=== PATIENT | male | born 1965 | race Caucasian/White ===

== ENCOUNTER 2017-10-13 06:52 | Emergency (ER) | payer BC ==
[~2017-10-13] VITALS: Ht 188 cm; Wt 100.0 kg
[~2017-10-13 06:52] MED LIST: CLIN300C3 PO; HYDR-569 PO; IBUP-1984 PO
[2017-10-13] MEDS ORDERED: MORPHINE 2MG in 2ml NS syringe IV PRN (07:10)
[2017-10-13] MEDS ORDERED: proCHLORperazine 10 MG/2 ml inj IV PRN (07:10)
[2017-10-13] MEDS ORDERED: clindamycin-Cleocin 900mg/D5W 50 ML IV ONE (07:10)
[2017-10-13] MEDS ORDERED: normal saline 1000ML IV soln IVB ONE (07:45)
[2017-10-13 07:48] LABS: BASOPHILS # (AUTO) 0.1 X10'3 (0-0.2); BASOPHILS % (AUTO) 0.8 % (0-1); EOSINOPHILS # (AUTO) 0.3 X10'3 (0-0.9); EOSINOPHILS % (AUTO) 4.1 % (0-6); HEMATOCRIT 45.2 % (42.0-52.0); HEMOGLOBIN 15.5 g/dl (14.0-17.9); LYMPHOCYTES # (AUTO) 1.8 X10'3 (1.1-4.8); LYMPHOCYTES % (AUTO) 21.1 % (21-51); MEAN CORPUSCULAR HEMOGLOBIN 30.5 PG (27.0-31.0); MEAN CORPUSCULAR HGB CONC 34.2 % (33.0-36.5); MEAN PLATELET VOLUME 7.7 FL (7.4-10.4); MONOCYTES # (AUTO) 0.9 X10'3 (0-0.9); MONOCYTES % (AUTO) 10.6 % (2-12); NEUTROPHILS # (AUTO) 5.5 X10'3 (1.8-7.7); NEUTROPHILS % (AUTO) 63.4 % (42-75); PLATELET COUNT 272 X10'3 (140-440); RED BLOOD COUNT 5.08 X10'6 (4.70-6.10); RED CELL DISTRIBUTION WIDTH 14.1 % (11.5-14.5); WHITE BLOOD COUNT 8.6 X10'3 (4.5-11.0)
[2017-10-13 07:52] LABS: ALANINE AMINOTRANSFERASE 54 U/L (12-78); ALBUMIN 3.2 G/DL (3.4-5.0); ALBUMIN/GLOBULIN RATIO 0.9 (1.1-1.5); ALKALINE PHOSPHATASE 94 IU/L (46-116); ANION GAP 7 (8-16); ASPARTATE AMINO TRANSFERASE 28 U/L (10-37); BILIRUBIN,TOTAL 0.3 MG/DL (0.1-1.0); BLOOD UREA NITROGEN 13 MG/DL (7-18); BUN/CREATININE RATIO 14.8 (5.4-32.0); CALCIUM 8.9 MG/DL (8.5-10.1); CHLORIDE 101 MMOL/L (99-107); CREATININE 0.88 MG/DL (0.60-1.10); GLUCOSE 140 MG/DL (70-104); POTASSIUM 3.6 MMOL/L (3.5-5.1); SODIUM 137 MMOL/L (135-145); TOTAL CARBON DIOXIDE 29.5 MMOL/L (24-32); TOTAL PROTEIN 6.9 G/DL (6.4-8.2); eGFR > 90 ML/MIN
[2017-10-13] MEDS ORDERED: iohexol 300mg/ml 100ml inj. ONE (07:52)
[2017-10-13] MEDS ORDERED: AZIT250T2 PO (09:59)
[2017-10-13 10:17] VITALS: BP 135/65
== END 2017-10-13 10:19 | disposition home or self-care (01) ==
LOC: ER 06:53
DX: K04.7 Periapical abscess without sinus (principal); J32.9 Chronic sinusitis, unspecified; Z98.890 Other specified postprocedural states; Z88.0 Allergy status to penicillin; Z79.899 Other long term (current) drug therapy
CPT/HCPCS: 36415; 70487; 80053; 83605; 84145; 85025; 87040; 96365; 99285; J3490; J7030; Q9967; J0780; J2274

== ENCOUNTER 2019-12-24 22:54 | Emergency (ER) | payer BC, OTHER ==
[~2019-12-24] VITALS: Ht 188 cm; Wt 95.5 kg
[~2019-12-24 22:54] MED LIST changes: +HYDR-4383 PO; -HYDR-569 PO; -IBUP-1984 PO
--- NOTE | 2019-12-24 23:15 | NUR ---
Poison control called for freeon exposure HIS NAME WAS chi - POISON CONTROLL STATES THAT PT SHOULD BE OBSERVED FOR TACHYCARDIAC SYMTOMS . PT CAN BE THROWN IN A ABDNORMAL CARDIAC RYTHMN IF HE IS A CHRONIC HUFFER . PT REPORTS THIS WAS AN ACCIDENTAL EXPOSURE AND THAT HE HAS NEVER INHALLED FREEON BEFORE . POISON CONTROL STATES THAT IF THE EXPOSURE WAS ACCIDENTAL THAT THE PATIENT SHOULD BE STABLE WITH IN 3-5 HOURS POST EXPOSURE MD QUEVEDO AWARE POISON CONTROL WAS CALLED
--- NOTE | 2019-12-24 23:27 | NUR ---
ekg being done
--- NOTE | 2019-12-24 23:33 | NUR ---
pt to xray with unleavened dough mixer kay
--- NOTE | 2019-12-24 23:34 | NUR ---
pt back from x ray
[2019-12-25 00:14] VITALS: BP 141/86
== END 2019-12-25 00:10 | disposition home or self-care (01) ==
LOC: ER 22:55
DX: R42 Dizziness and giddiness (principal); R07.89 Other chest pain; I10 Essential (primary) hypertension; F17.200 Nicotine dependence, unspecified, uncomplicated; Z77.098 Contact with and (suspected) exposure to other hazardous, chiefly nonmedicinal, chemicals; Z88.0 Allergy status to penicillin; Z79.899 Other long term (current) drug therapy
CPT/HCPCS: 71046; 93005; 99283

== ENCOUNTER 2021-05-10 02:09 | Emergency (ER) | payer SELFPAY ==
[~2021-05-10] VITALS: Ht 188 cm; Wt 100.0 kg
[2021-05-10 02:13] VITALS: BP 148/69
[2021-05-10] MEDS ORDERED: naproxen 500mg tablet PO ONE (02:25)
[2021-05-10] MEDS ORDERED: HYDROcodone/acetaminophen 10/325mg tab PO ONE (02:25)
[2021-05-10] MEDS ORDERED: clindamycin 150mg capsule PO ONE (02:25)
[2021-05-10] MEDS ORDERED: CLINDAMYCIN (02:27)
[2021-05-10] MEDS ORDERED: CLIN300C53 PO (02:27)
== END 2021-05-10 02:44 | disposition home or self-care (01) ==
LOC: ER 02:10
DX: K04.7 Periapical abscess without sinus (principal); K02.9 Dental caries, unspecified; Z72.0 Tobacco use; I10 Essential (primary) hypertension; Z87.81 Personal history of (healed) traumatic fracture; Z98.890 Other specified postprocedural states; Z88.0 Allergy status to penicillin; Z79.2 Long term (current) use of antibiotics; Z79.899 Other long term (current) drug therapy
CPT/HCPCS: 99284

== ENCOUNTER 2021-05-10 21:43 | Emergency (ER) | payer SELFPAY ==
[~2021-05-10 21:43] MED LIST changes: +CLIN300C53 PO; +CLINDAMYCIN
== END 2021-05-10 21:54 | disposition left against medical advice (07) ==
LOC: ER 21:44
DX: R68.84 Jaw pain (principal); Z53.21 Procedure and treatment not carried out due to patient leaving prior to being seen by health care provider

== ENCOUNTER 2022-11-16 14:53 | Emergency (ER) | payer MEDICAID ==
[~2022-11-16] VITALS: Ht 185.4 cm; Wt 88.6 kg
[~2022-11-16 14:53] MED LIST changes: -CLIN300C53 PO
[2022-11-16 15:27] VITALS: BP 148/91
[2022-11-16] MEDS ORDERED: DOXY-1 PO ×3 (18:17→18:39)
== END 2022-11-16 18:30 | disposition home or self-care (01) ==
LOC: ER 14:54
DX: R60.0 Localized edema (principal); L03.115 Cellulitis of right lower limb; I10 Essential (primary) hypertension; Z87.81 Personal history of (healed) traumatic fracture; Z88.0 Allergy status to penicillin; Z79.899 Other long term (current) drug therapy
CPT/HCPCS: 93971; 99284